=== PATIENT | female | born 2000 | race Caucasian/White ===

== ENCOUNTER 2019-05-24 23:51 | Emergency (ER) | payer SELFPAY ==
[2019-05-25] MEDS ORDERED: Lidocaine 2% EPI 1:200000 MPF* 10 ML VIAL INJ ONE (01:15)
--- NOTE | 2019-05-25 01:16 | ED ---
Laceration/Wound HPI - HPI Summary HPI Summary: 18-year-old female presents with scalp laceration today. States she fell back and then hit her head. No loss consciousness. She admits to some dizziness. Only has pain at the site. States area continues to bleed. Has no medical conditions. Tetanus up-to-date. Patient gets extreme anxiety with medical procedures. She denies any nausea vomiting. No change in vision. no neck pain. no other injury. states was walking backwards when she tripped. - History of Current Complaint Stated Complaint: HEAD LAC/FALL PER PT Time Seen by Provider: 05/25/19 01:07 Pain Intensity: 4 - Allergy/Home Medications Allergies/Adverse Reactions: Allergies Allergy/AdvReac Type Severity Reaction Status Date / Time No Known Allergies Allergy Verified 05/24/19 23:54 PMH/Surg Hx/FS Hx/Imm Hx Endocrine/Hematology History: Denies: Hx Anticoagulant Therapy Respiratory History: Denies: Hx Asthma Infectious Disease History: No Infectious Disease History: Denies: Traveled Outside the [place] in Last 30 Days - Family History Known Family History: Positive: Non-Contributory - Social History Alcohol Use: Occasionally Substance Use Type: Reports: None Smoking Status (MU): Never Smoked Tobacco Review of Systems Negative: Fever Negative: Chest Pain Negative: Shortness Of Breath Positive: Other - scalp laceration Negative: Headache All Other Systems Reviewed And Are Negative: Yes Physical Exam Triage Information Reviewed: Yes Vital Signs On Initial Exam: Initial Vitals Temp Pulse Resp BP Pulse Ox 98.2 F 112 20 142/95 98 05/24/19 23:52 05/24/19 23:52 05/24/19 23:52 05/24/19 23:52 05/24/19 23:52 Vital Signs Reviewed: Yes Appearance: Positive: Well-Appearing Skin: Positive: Warm, Dry, Other - 3cm by 1/2cm laceration to posterior scalp Head/Face: Positive: Normal Head/Face Inspection Eyes: Positive: Normal, Conjunctiva Clear ENT: Positive: Pharynx normal Respiratory/Lung Sounds: Positive: Clear to Auscultation, Breath Sounds Present Cardiovascular: Positive: Normal, RRR Musculoskeletal: Positive: Normal Neurological: Positive: Sensory/Motor Intact, Alert, Oriented to Person Place, Time, CN Intact II-III Psychiatric: Positive: Normal - [place] Coma Scale Best Eye Response: 4 - Spontaneous Best Motor Response: 6 - Obeys Commands Best Verbal Response: 5 - Oriented Coma Scale Total: 15 Procedures - Sedation Patient Received Moderate/Deep Sedation with Procedure: No - Laceration/Wound Repair 1 Location: head Description: Linear Length, Depth and Shape: 3cm by 1/2cm Irrigated w/ Saline (ccs): 500 Closure: Babita #__ - 3 Diagnostics - Vital Signs Vital Signs Temp Pulse Resp BP Pulse Ox 05/24/19 23:52 98.2 F 112 20 142/95 98 - Laboratory Lab Statement: Any lab studies that have been ordered have been reviewed, and results considered in the medical decision making process. Laceration Repair Course/Dx - Course Course Of Treatment: 18-year-old female presents with scalp laceration today. States she fell back and then hit her head. No loss consciousness. She admits to some dizziness. Only has pain at the site. States area continues to bleed. Has no medical conditions. Tetanus up-to-date. Patient gets extreme anxiety with medical procedures. She denies any nausea vomiting. No change in vision. On exam has normal neuro exam. Has a 3 cm by half centimeter laceration to the posterior scalp. Cleaned area and place 3 babita. told to keep area clean and dry. will have follow-up [facility] about head injury. gave concussion precautions. Patient understands and agrees with plan. - Differential Dx Differental Diagnoses: Abrasion, Avulsion, Laceration - Clinical Impression Provider Diagnoses: Scalp laceration, Head injury Discharge ED - Sign-Out/Discharge Documenting (check all that apply): Patient Departure - Discharge Plan Condition: Good Disposition: HOME Patient Education Materials: Staple Care (ED) Referrals: No Primary Care Phys,NOPCP [Primary Care Provider] - Additional Instructions: Take Tylenol or ibuprofen for pain every 6 hours Do not scrub staple area Return to ED, urgent care or primary in 7-10 days to have babita removed Follow up with primary within 5 days Return to ED if develop any new or worsening symptoms - Billing Disposition and Condition Condition: GOOD Disposition: Home
[2019-05-25] MEDS ORDERED: LORazepam TAB(*) 1 MG PO ONE (01:25)
[2019-05-25] MEDS ORDERED: Lidocaine 2% w/ EPI 1:200,000* 20 ML SDV VIAL ONE (01:36)
[2019-05-25 01:59] VITALS: BP 121/78
== END 2019-05-25 01:59 | disposition home or self-care (01) ==
LOC: ED 23:51
DX: S01.01XA Laceration without foreign body of scalp, initial encounter (principal); W01.0XXA Fall on same level from slipping, tripping and stumbling without subsequent striking against object, initial encounter; Y92.9 Unspecified place or not applicable
CPT/HCPCS: 12002; 99282; A9270-GY